=== PATIENT | female | born 1995 | race Caucasian/White ===

== ENCOUNTER → 2019-12-07 14:01 | Outpatient (CLI) | payer MEDICAID, SELFPAY ==
[2017-01-06 07:08] VITALS: BMI 29.4
[2019-12-07 15:56] LABS: Absolute Lymphocyte Count 1.19 X10^3/uL (0.83-4.51); Absolute Neutrophil Count 5.1 X10^3/uL (2.0-7.7); Basophil# 0.01 X10^3/uL; Basophil% 0.1 % (0-1); Eosinophil# 0.03 X10^3/uL; Eosinophils% 0.4 % (0-5); Hematocrit 40.8 % (37-47); Hemoglobin 14.1 g/dL (12.0-15.0); Lymphocyte # 1.19 X10^3/ul (4.0); Lymphocyte % 17.7 % (19-41); Mean Corp Hgb Conc 34.6 g/dL (32-36); Mean Corpuscular Hgb 30.5 pg (27.0-32.0); Mean Corpuscular Volume 88.3 fL (81-99); Mean Platelet Vol. 11.1 fl (6.2-12.0); Monocyte# 0.39 X10^3/uL; Monocyte% 5.8 % (0-10); NRBC Flagged by Analyzer 0 % (0-5); Neutrophil # 5.09 X10^3/uL (2.7-7.7); Neutrophil % 75.7 % (47-70); Platelet Count 282 K/mm3 (150-450); RBC Distribution Width CV 11.6 % (11.6-14.6); RBC Distribution Width SD 36.5 fl (35.1-43.9); Red Blood Count 4.62 M/mm3 (4.2-5.4); White Blood Count 6.7 K/mm3 (4.4-11.0)
[2019-12-07 16:15] LABS: Thyroid Stim Hormone (TSH) 0.33 uIU/mL (0.358-3.74)
[2019-12-07 16:51] LABS: Color, Urine Yellow (Yellow); Glucose, Dipstick Normal (Normal); Ketone-Dipstick 50 mg/dl (Negative); Leukocyte Esterase-Dipstick 25 /ul (Negative); Nitrite-Dipstick Negative (Negative); Occult Blood-Urine Negative /ul (Negative); Protein-Dipstick 15 mg/dl (Negative); Urine Bilirubin Dipstick Negative (Negative); Urine Clarity Sl. Cloudy (Clear); Urine Urobilinogen 4 mg/dl (Normal)
[2019-12-07 17:07] LABS: Amphetamine Urine VISTA NEGATIVE (<1000 ng/mL); Barbiturate Urine VISTA NEGATIVE (< 200 ng/mL); Benzodiazepine Urine VISTA NEGATIVE (< 200 ng/mL); Cocaine Urine VISTA NEGATIVE (< 300 ng/mL); Ecstacy Urine VISTA NEGATIVE (< 500 ng/mL); Methadone Urine VISTA NEGATIVE (< 300 ng/mL); PCP Urine VISTA NEGATIVE (< 25 ng/mL); THC Urine VISTA NEGATIVE (< 50 ng/mL); Vista UDS pH Range 7
[2019-12-08 09:36] LABS: HIV - WCH Non-Reactive (Nonreactive); Hepatitis B Surface Antigen Non-Reactive (Nonreactive); Hepatitis C Antibody Non-Reactive (Nonreactive); Rubella IgG 46.7 IU/mL
[2019-12-09 01:34] LABS: Prenatal RPR NONREACTIVE (NONREACTIVE)
[2019-12-10 16:36] LABS: HPV Reflexed? NOT INDICATED
[2019-12-11 03:06] LABS: Chlamydia By Nucleic Acid AMP Negative (Negative)
[2019-12-11 14:11] LABS: Gonococcus By Nucleic Acid AMP Negative (Negative)
== END ==
PROVIDERS: Visit Provider Obstetrics & Gynecology
DX: Z34.81 Encounter for supervision of other normal pregnancy, first trimester (principal)
CPT/HCPCS: 36415; 80307; 81002; 84443; 85025; 86703; 86762; 86803; 87340; 87491; 87591; 88175; G0145

== ENCOUNTER → 2020-04-05 13:35 | Outpatient (CLI) | payer MEDICAID, SELFPAY ==
[2017-01-06 07:08] VITALS: BMI 29.4
[2020-04-05 15:48] LABS: Hematocrit 35.3 % (37-47); Hemoglobin 12.2 g/dL (12.0-15.0); Mean Corp Hgb Conc 34.6 g/dL (32-36); Mean Corpuscular Hgb 30.8 pg (27.0-32.0); Mean Corpuscular Volume 89.1 fL (81-99); Mean Platelet Vol. 10.4 fl (6.2-12.0); Platelet Count 308 K/mm3 (150-450); RBC Distribution Width CV 11.9 % (11.6-14.6); RBC Distribution Width SD 37.8 fl (35.1-43.9); Red Blood Count 3.96 M/mm3 (4.2-5.4)
[2020-04-05 15:54] LABS: Glucose Challenge Gest 1H 50g 87 mg/dL (70-140)
== END ==
PROVIDERS: Visit Provider Obstetrics & Gynecology
DX: Z34.83 Encounter for supervision of other normal pregnancy, third trimester (principal)
CPT/HCPCS: 82950; 85027

== ENCOUNTER → 2020-05-31 15:47 | Outpatient (CLI) | payer MEDICAID, SELFPAY ==
[2017-01-06 07:08] VITALS: BMI 29.4
== END ==
PROVIDERS: Visit Provider Obstetrics & Gynecology
DX: Z36.85 Encounter for antenatal screening for Streptococcus B (principal)
CPT/HCPCS: 87081

== ENCOUNTER → 2020-06-14 16:34 | Outpatient (CLI) | payer MEDICAID, SELFPAY | PROVIDERS: Referring Provider Obstetrics & Gynecology; Visit Provider Obstetrics & Gynecology | DX: Z03.818 Encounter for observation for suspected exposure to other biological agents ruled out (principal) | CPT/HCPCS: 87426; C9803 ==

== ENCOUNTER 2020-06-19 07:05 | Inpatient (IN) | payer MEDICAID, SELFPAY ==
[2020-06-19] VITALS (46 sets, daily range): BP systolic 86–122; BP diastolic 50–72; PULSE 65–93; TEMP 36.3–36.6; O2SAT 96–100; BMI 29.9
[2020-06-19] MEDS: 0.9% Saline Lock 10 ML Syringe IV ×2 (07:26→21:52)
[2020-06-19] MEDS: 0.9% Normal Saline 1,000 ML 50 ML IV (07:40)
[2020-06-19 07:41] LABS: Absolute Lymphocyte Count 2.25 X10^3/uL (0.83-4.51); Absolute Neutrophil Count 6.8 X10^3/uL (2.0-7.7); Basophil# 0.03 X10^3/uL; Basophil% 0.3 % (0-1); Eosinophil# 0.14 X10^3/uL; Eosinophils% 1.4 % (0-5); Hematocrit 35.3 % (37-47); Hemoglobin 11.7 g/dL (12.0-15.0); Lymphocyte # 2.25 X10^3/ul (0.83-4.51); Lymphocyte % 22.3 % (19-41); Mean Corp Hgb Conc 33.1 g/dL (32-36); Mean Corpuscular Hgb 28.5 pg (27.0-32.0); Mean Corpuscular Volume 85.9 fL (81-99); Mean Platelet Vol. 9.7 fl (6.2-12.0); Monocyte# 0.79 X10^3/uL; Monocyte% 7.8 % (0-10); NRBC Flagged by Analyzer 0 % (0-5); Neutrophil # 6.81 X10^3/uL (2.7-7.7); Neutrophil % 67.6 % (47-70); Platelet Count 341 K/mm3 (150-450); RBC Distribution Width CV 12.3 % (11.6-14.6); RBC Distribution Width SD 37.8 fl (35.1-43.9); Red Blood Count 4.11 M/mm3 (4.2-5.4); White Blood Count 10.1 K/mm3 (4.4-11.0)
[2020-06-19] MEDS: Oxytocin 30 units/NS 500 ml 30 UNITS/500 ML IV.SOLN IV (07:54)
--- NOTE | 2020-06-19 11:38 | HP.PCM_ITS ---
History and Physical Date of Admission: 06/19/20 HPI: 25-year-old G3, P2 at 39/0 weeks, JOYCELYN 06/26/2020 by LMP, admitted for term induction of labor. Denies leaking of fluid, regular contractions, vaginal bleeding. Reports movement. This is complicated by: None Obstetrical History 1 08/25/13 Male 39 wks 29 hrs Vag 2 01/06/17 Male 39 wks 11 hrs Vacuum 3 current Past Medical History Hx of transfusion after trauma Medications PNV Past Surgical History 1. Trauma, with PRBC transfusion 2. Tonsillectomy & adenoidectomy 3. WTE 4. Plastic surgery Social History Tobacco use: denies Alcohol use: denies Illicit drug use: denies Labs Blood type: A positive Rubella: Immune Hep B\C: Negative/negative HIV: Negative RPR: Nonreactive 1 hour GTT: Within normal limits GBS: neg 05/31 Allergies LR --> vomiting Review of Systems General: alert and oriented HEENT: _denies change of vision Heart/lungs: _denies CP, SOB GI: _denies nausea, vomiting, dysuria, diarrhea MSK: _denies calf pain, tenderness Physical Exam Vital Signs Temp Pulse BP Pulse Ox 06/19/20 11:08 97.7 F L 06/19/20 11:07 71 107/66 06/19/20 09:50 82 86/53 L 06/19/20 09:49 78 86/51 L 06/19/20 09:09 97.9 F 06/19/20 09:07 78 97/55 L 06/19/20 08:04 88 111/67 06/19/20 08:03 98 06/19/20 07:32 97.9 F 06/19/20 07:31 93 122/68 H General: a&o x3, NAD HEENT: normocephalic, atraumatic Cardio: no JVD Resp: no increased work in breathing Abdomen: soft, gravid, nontender Extremities: minimal edema CE: 3 cm per RN FHT: 125/moderate variability/+ accelerations/no decelerations [place]: q2-3 min Labs Laboratory Results - last 24 hr 06/19/20 06/19/20 07:26 07:26 WBC 10.1 RBC 4.11 L Hgb 11.7 L Hct 35.3 L MCV 85.9 MCH 28.5 MCHC 33.1 RDW Std Deviation 37.8 RDW Coeff of Elvira 12.3 Plt Count 341 MPV 9.7 Immature Gran % (Auto) 0.600 Neut % (Auto) 67.6 Lymph % (Auto) 22.3 Bullock % (Auto) 7.8 Eos % (Auto) 1.4 Baso % (Auto) 0.3 Absolute Neuts (auto) 6.8 Absolute Lymphs (auto) 2.25 Nucleated RBC % 0 Blood Type A POSITIVE Antibody Screen NEGATIVE Assessment & Plan 25-year-old G3, P2 at 39/0 weeks, JOYCELYN 06/26/2020 by LMP, admitted for term induction of labor. This is complicated by: None Admit to L&D - Routine labor orders - Plan for AROM and pitocin - GBS neg - CEFM - Anesthesia to see
--- NOTE | 2020-06-19 12:30 | PCM.PN.BLA ---
Progress Note AROM clear fluid /-2. Cat I. Continue titrating pitocin. Pt is planning epidural now. STROKE Vital Signs/Narrative: Vital Signs Temp Pulse BP 06/19/20 11:52 76 99/61 06/19/20 11:51 77 89/53 L 06/19/20 11:08 97.7 F L 06/19/20 11:07 71 107/66 06/19/20 09:50 82 86/53 L 06/19/20 09:49 78 86/51 L 06/19/20 09:09 97.9 F 06/19/20 09:07 78 97/55 L
[2020-06-19] MEDS: fentaNYL-bupivacaine (epidural) 100 ML BAG EPIDURAL ×2 (12:43→17:24)
[2020-06-19] MEDS: 0.9% Normal Saline 1,000 ML 200 ML IV (16:00)
--- NOTE | 2020-06-19 18:18 | PCM.OPRPT ---
Vaginal Delivery Maternal Presentation: Elective Induction Method of Induction: Pitocin, Amniotomy Amniotic Membrane Rupture Type: Artificial Amniotic Fluid Description: Clear Final JOYCELYN: 06/26/20 Final JOYCELYN Source: LMP Gestational age: 39 Weeks and 0 Days Date of Procedure: 06/19/20 Pre-Operative Diagnosis: Reynolds intrauterine , term Post-Operative Diagnosis: Reynolds intrauterine , term Surgery/ Procedure Performed: Spontaneous Vaginal Delivery, Vacuum Assisted Vaginal Delivery Type of Anesthesia: Epidural Description of Procedure: Vacuum-assisted vaginal delivery for maternal exhaustion. Risks, benefits, alternatives were discussed with the patient. Patient had 2 prior vacuum deliveries per her report. Discussed risks that include but are not limited to: Risk of scalp laceration, cephalohematoma, low risk of subgaleal hemorrhage, risk of vaginal laceration to patient. Patient verbally consents and had no questions. head position confirmed left occiput transverse. Adequate anesthesia with epidural. Bladder being drained via Patel catheter. head position +2 station. Vacuum applied. No maternal tissue within the vacuum. head had descent with maternal efforts. 1 pop-off was noted. Vacuum seal released between contractions. Once head on perineum vacuum removed and head delivered with maternal efforts alone. Shoulders delivered followed by body, no nuchal cord. Baby to maternal chest. Cord clamped and cut. Spontaneous delivery of placenta. No lacerations. Small abrasion noted to scalp, discussed with patient and her . Estimated Blood Loss: 250cc Infant A gender: Male (1 minute): 8 (5 minute): 9
--- NOTE | 2020-06-19 18:19 | DCINST_ITS ---
Discharge Diet: No Restrictions Discharge Activity: Return to Normal Activity, May not drive while taking narcotic pain medications., May Shower May resume sexual activity in: 4-6 weeks Weight Bearing Status: Weight bearing as tolerated Call your doctor if you observe: Fever of 101 or Higher, Coldness, Increased Pain, Using more than one pad per hour, Shortness of breath, Dizziness, Increased palpitations (irregular heartbeat), Calf discomfort, Uncontrolled pain Additional Instructions: If you experience any of the following, contact your healthcare provider. * Bleeding that soaks a pad every hour for 2 hours * Fever 100.4 or higher * Unrelieved incision or abdominal pain * Swelling, redness, discharge or bleeding from your incision or episiotomy site * Your incision begins to separate * Problems urinating (including inability to urinate or burning while urinating). * Visual changes * Severe headache * Flu-like symptoms * Pain or redness in one of both of your breasts * Pain, warmth, tenderness or swelling in your legs, especially the calf area * Frequent nausea and vomiting * Symptoms of depression or anxiety If you experience any of the following, call 911 or go to the nearest Emergency Room. * Chest pain * Problems breathing * Seizure activity * Partial or complete paralysis of a body part, slurred speech, weakness or drooping of the face, or a sudden inability to walk or hold your balance Allergies/Adverse Reactions: Allergies lactated ringers Adverse Reaction (Uncoded 01/06/17 07:48) Vomiting Medications to take at Discharge Vits [Prenatabs FA] 1 tablet PO DAILY 10/15/16 Please Follow Up With: Silverio Kwong MD When: 3 week telehealth visit, 6 week Primary Care Physician: Care Physician,No Primary [Primary Care Provider] - Test Results: Test results from this visit will be discussed in further detail at your follow- up appointment, if applicable.
[2020-06-19] MEDS: Ondansetron 4 MG/2 ML Vial IV (18:42)
[2020-06-19] MEDS: Oxytocin 30 units/NS 500 ml 30 UNITS/500 ML IV.SOLN 334 UNITS IV (19:13)
[2020-06-20 01:08] VITALS: BP 96/49; PULSE 70; RESP 18; TEMP 36.9
[2020-06-20 04:46] VITALS: BP 93/51; PULSE 66; RESP 18
--- NOTE | 2020-06-20 07:34 | PCM.PN.OB ---
Subjective: No overnight complaints. - Physical Exam Vitals/I&O's: Vital Signs Temp Pulse Resp BP Pulse Ox 98.5 F 66 18 93/51 L 98 06/20/20 01:08 06/20/20 04:46 06/20/20 04:46 06/20/20 04:46 06/19/20 15:35 Oxygen Delivery Method Room Air Weight: 169 lb Body Mass Index (BMI) 29.9 Intake and Output for Last 24 Hours 06/18/20 06/19/20 06/20/20 23:59 23:59 23:59 Intake Total 3151.49 / 3151.49 Output Total 1100 / 1100 1000 / 1000 Balance 2051.49 / 2051.49 -1000 / -1000 General: Alert, Oriented x3, Cooperative, No apparent distress HEENT: Atraumatic, Normocephalic Oral: Moist Mucosa Neck: Supple Abdomen: Soft, Non Tender, - - Uterus firm and below umbilicus Extremities: No clubbing, No cyanosis, No edema Neurological: Neuro grossly intact Psych/Mental Status: Normal Affect, Appropriate, Alert and oriented to time, place, person, mood and affect Laboratory Results 06/19/20 07:26: WBC 10.1, RBC 4.11 L, Hgb 11.7 L, Hct 35.3 L, MCV 85.9, MCH 28.5, MCHC 33.1, RDW Std Deviation 37.8, RDW Coeff of Elvira 12.3, Plt Count 341, MPV 9.7, Immature Gran % (Auto) 0.600, Neut % (Auto) 67.6, Lymph % (Auto) 22.3, [place] % (Auto) 7.8, Eos % (Auto) 1.4, Baso % (Auto) 0.3, Absolute Neuts (auto) 6.8, Absolute Lymphs (auto) 2.25, Nucleated RBC % 0 06/19/20 07:26: Blood Type A POSITIVE, Antibody Screen NEGATIVE Current Medications Acetaminophen (Acetaminophen 500 Mg Tablet) 1,000 mg PO Q8H PRN PRN PRN Reason: Pain Score 1-10 Bisacodyl (Bisacodyl 10 Mg Suppository) 10 mg RC UD PRN PRN Reason: If no BM Dibucaine (Dibucaine 30 Gm Tube) 1 applic TOPICAL TID PRN PRN; Protocol PRN Reason: Discomfort Hydrocortisone (Hydrocortisone 2.5% Crm) 1 applic TOPICAL TID PRN PRN; Protocol PRN Reason: Discomfort Ibuprofen (Ibuprofen 600 Mg Tablet) 600 mg PO Q6H PRN PRN PRN Reason: Pain Score 1-10 Ondansetron HCl (Ondansetron 4 Mg/2 Ml Vial) 4 mg IV Q4H PRN PRN PRN Reason: Nausea Senna/Docusate Sodium (Senna/Docusate Sodium 1 Tablet) 1 - 2 tablet PO DAILY PRN PRN PRN Reason: Constipation Simethicone (Simethicone 80 Mg Tablet) 80 mg PO PCHS PRN PRN Reason: Indigestion/Stomach pain Sodium Chloride (0.9% Saline Lock 10 Ml Syringe) 5 - 15 ml IV UD PRN PRN Reason: SALINE FLUSH Last Admin: 06/19/20 21:52 Dose: 10 ml Documented by: Zolpidem Tartrate (Zolpidem Tartrate 5 Mg Tablet) 5 mg PO QHS PRN PRN PRN Reason: Insomnia Medical Necessity - Tobacco Use Smoking Status: Never smoker Assessment/Plan day 1 status post vacuum-assisted vaginal delivery. Bottlefeeding. Will likely discharge home tomorrow
[2020-06-20 08:00] VITALS: BP 93/53; PULSE 68; RESP 16; TEMP 36.3
[2020-06-20 12:58] VITALS: BP 105/66; PULSE 77; RESP 16; TEMP 36.3
[2020-06-20 16:00] VITALS: BP 101/61; PULSE 65; RESP 18; TEMP 36.2
[2020-06-20 19:45] VITALS: BP 111/65; PULSE 82; RESP 16; TEMP 36.2
== END 2020-06-20 19:58 | disposition home or self-care (01) | DRG 560 ==
PROVIDERS: Admitting Provider Student in an Organized Health Care Education/Training Program; Referring Provider Student in an Organized Health Care Education/Training Program; Visit Provider Student in an Organized Health Care Education/Training Program
DX: O75.81 Maternal exhaustion complicating labor and delivery (principal); Z3A.39 39 weeks gestation of pregnancy; Z37.0 Single live birth
CPT/HCPCS: 59025; 59050; 85025; 86850; 86900; 86901; 99218; J7030; J7040; A4216; G0378; J2405